=== PATIENT | male | born 1950 | race Caucasian/White ===

== ENCOUNTER → 2016-03-22 | Outpatient (CLI) | payer OTHER ==
[~2016-03-22] MED LIST: ALPR1TAB2 PO; NOR5T PO
[2016-03-22 10:59] LABS: INR 1.03 (0.9-1.15); Prothrombin Time 10.6 sec (9.37-12.3)
[2016-03-22 11:18] LABS: BUN/Creatinine Ratio 9.7; Bilirubin, Total 0.3 mg/dL (0.2-1.0); Calcium 9.3 mg/dL (8.5-10.1); Potassium 4.6 mmol/L (3.5-5.1); Total Protein 7.5 g/dL (6.4-8.2)
[2016-03-22 14:22] LABS: DEFINITIVE VIEW TRANSMISSION; Hematocrit 36.4 % (41.0-53.0); Hemoglobin 12.2 g/dL (13.5-17.5); Mean Corpuscular Hemoglobin 31.6 pg (28.0-32.0); Mean Corpuscular Hgb Conc. 33.7 g/dL (32.0-36.0); Mean Corpuscular Volume 93.9 fL (80.0-100.0); Mean Platelet Volume 9.1 fL (7.4-10.4); Platelet Count (auto) 286 10^3/uL (140-450); SUSPECT VIEW TRANSMISSION
[2016-03-22 14:23] LABS: White Blood Cell 57.2 10^3/uL (4.4-10.8)
[2016-03-22 14:24] LABS: Promyelocytes % 0; Reactive Lymphocytes 0
[2016-03-22 18:43] LABS: Metamyelocytes % 10; Myelocytes % 5
[2016-03-22 18:44] LABS: Burr Cells FEW; Hypersegmented Neutrophils Present; Platelet Estimate Adequate; Tear Drop Cells FEW
== END | disposition home or self-care (01) ==
LOC: LAB 09:56
DX: C92.10 Chronic myeloid leukemia, BCR/ABL-positive, not having achieved remission (principal)
CPT/HCPCS: 36415; 80053; 80061; 84443; 85007; 85027; 85610; 85652

== ENCOUNTER → 2016-04-04 | Outpatient (CLI) | payer OTHER ==
[2016-04-04 09:58] LABS: Urine Bilirubin Negative (Negative); Urine Blood TRACE /uL (Negative); Urine Color Yellow (Yellow); Urine Glucose Normal (Normal); Urine Ketone Negative (Negative); Urine Nitrite Negative (Negative); Urine RBC 2 /hpf (0 - 3); Urine Urobilinogen Normal (Negative); Urine pH 5.5 (5.0-8.0)
[2016-04-04 10:02] LABS: DEFINITIVE VIEW TRANSMISSION; Hematocrit 39.6 % (41.0-53.0); Hemoglobin 12.9 g/dL (13.5-17.5); Mean Corpuscular Hemoglobin 30.5 pg (28.0-32.0); Mean Corpuscular Hgb Conc. 32.6 g/dL (32.0-36.0); Mean Corpuscular Volume 93.4 fL (80.0-100.0); Mean Platelet Volume 9.5 fL (7.4-10.4); Platelet Count (auto) 305 10^3/uL (140-450); Red Cell Distribution Width 15.9 % (11.6-16.0); SUSPECT VIEW TRANSMISSION
[2016-04-04 10:09] LABS: INR 1.03 (0.9-1.15); Prothrombin Time 10.6 sec (9.37-12.3)
[2016-04-04 10:10] LABS: White Blood Cell 50.5 10^3/uL (4.4-10.8)
[2016-04-04 10:11] LABS: Promyelocytes % 0; Reactive Lymphocytes 0
[2016-04-04 10:53] LABS: Albumin 4.6 g/dL (3.4-5.0); BUN/Creatinine Ratio 16.3; Bilirubin, Total 0.3 mg/dL (0.2-1.0); Calcium 9.5 mg/dL (8.5-10.1); Potassium 4.2 mmol/L (3.5-5.1); Total Protein 7.9 g/dL (6.4-8.2)
[2016-04-04 11:06] LABS: Hypersegmented Neutrophils Present; Metamyelocytes % 7; Myelocytes % 2; Platelet Estimate Adequate
[2016-04-04 11:08] LABS: Anisocytosis Slight
== END | disposition home or self-care (01) ==
LOC: LAB 08:51
DX: C92.10 Chronic myeloid leukemia, BCR/ABL-positive, not having achieved remission (principal)
CPT/HCPCS: 36415; 80053; 80061; 81001; 83615; 84443; 85007; 85027; 85049; 85610; 85652

== ENCOUNTER → 2016-04-22 | Outpatient (CLI) | payer OTHER ==
[2016-04-22 08:08] LABS: Urine Bilirubin Negative (Negative); Urine Blood Negative /uL (Negative); Urine Color Yellow (Yellow); Urine Glucose Normal (Normal); Urine Ketone Negative (Negative); Urine Nitrite Negative (Negative); Urine RBC <1 /hpf (0 - 3); Urine Squamous Epithelial Cell FEW /hpf (<5); Urine Urobilinogen Normal (Negative)
[2016-04-22 08:14] LABS: Albumin 3.4 g/dL (3.4-5.0); BUN/Creatinine Ratio 18.8; Calcium 8.5 mg/dL (8.5-10.1); Potassium 3.7 mmol/L (3.5-5.1)
[2016-04-22 08:27] LABS: Bilirubin, Total 0.2 mg/dL (0.2-1.0); Total Protein 6.5 g/dL (6.4-8.2)
[2016-04-22 08:50] LABS: DEFINITIVE VIEW TRANSMISSION; Hematocrit 37.5 % (41.0-53.0); Hemoglobin 11.8 g/dL (13.5-17.5); Mean Corpuscular Hemoglobin 29.6 pg (28.0-32.0); Mean Corpuscular Hgb Conc. 31.6 g/dL (32.0-36.0); Mean Corpuscular Volume 93.9 fL (80.0-100.0); Mean Platelet Volume 9.4 fL (7.4-10.4); Platelet Count (auto) 233 10^3/uL (140-450); Red Cell Distribution Width 15.9 % (11.6-16.0); SUSPECT VIEW TRANSMISSION
[2016-04-22 11:16] LABS: Promyelocytes % 0; Reactive Lymphocytes 0; White Blood Cell 125.2 10^3/uL (4.4-10.8)
[2016-04-22 14:10] LABS: Metamyelocytes % 11; Myelocytes % 13
[2016-04-22 14:11] LABS: Platelet Estimate Adequate
== END | disposition home or self-care (01) ==
LOC: LAB 06:41
DX: C92.10 Chronic myeloid leukemia, BCR/ABL-positive, not having achieved remission (principal)
CPT/HCPCS: 36415; 80053; 80061; 81001; 83615; 84443; 85007; 85027

== ENCOUNTER → 2016-05-10 | Outpatient (CLI) | payer OTHER ==
[2016-05-10 09:28] LABS: DEFINITIVE VIEW TRANSMISSION; Hematocrit 36.9 % (41.0-53.0); Hemoglobin 12.6 g/dL (13.5-17.5); Mean Corpuscular Hemoglobin 31.3 pg (28.0-32.0); Mean Corpuscular Hgb Conc. 34.2 g/dL (32.0-36.0); Mean Corpuscular Volume 91.5 fL (80.0-100.0); Platelet Count (auto) 286 10^3/uL (140-450); Red Cell Distribution Width 16.9 % (11.6-16.0); SUSPECT VIEW TRANSMISSION
[2016-05-10 10:06] LABS: Albumin 4.3 g/dL (3.4-5.0); BUN/Creatinine Ratio 14.3; Bilirubin, Total 0.3 mg/dL (0.2-1.0); Calcium 9.5 mg/dL (8.5-10.1); Potassium 4.1 mmol/L (3.5-5.1); Total Protein 8.6 g/dL (6.4-8.2)
[2016-05-10 10:12] LABS: White Blood Cell 122.3 10^3/uL (4.4-10.8)
[2016-05-10 10:13] LABS: Promyelocytes % 0; Reactive Lymphocytes 0
[2016-05-10 15:14] LABS: Metamyelocytes % 9; Myelocytes % 9
[2016-05-10 15:15] LABS: Platelet Estimate Adequate
== END | disposition home or self-care (01) ==
LOC: LAB 08:20
PROVIDERS: ATTEND Internal Medicine
DX: D72.829 Elevated white blood cell count, unspecified (principal)
CPT/HCPCS: 36415; 80053; 83615; 85007; 85027

== ENCOUNTER → 2016-06-06 | Outpatient (CLI) | payer OTHER ==
[2016-06-06 09:37] LABS: DEFINITIVE VIEW TRANSMISSION; Hematocrit 34.7 % (41.0-53.0); Hemoglobin 11.4 g/dL (13.5-17.5); Mean Corpuscular Hemoglobin 30.5 pg (28.0-32.0); Mean Corpuscular Hgb Conc. 32.9 g/dL (32.0-36.0); Mean Corpuscular Volume 92.9 fL (80.0-100.0); Mean Platelet Volume 8.9 fL (7.4-10.4); Platelet Count (auto) 296 10^3/uL (140-450); Red Cell Distribution Width 17.6 % (11.6-16.0); SUSPECT VIEW TRANSMISSION
[2016-06-06 09:52] LABS: Promyelocytes % 0; Reactive Lymphocytes 0
[2016-06-06 10:31] LABS: Metamyelocytes % 11; Myelocytes % 7; Platelet Estimate Adequate
[2016-06-06 10:32] LABS: Anisocytosis Slight
== END | disposition home or self-care (01) ==
LOC: LAB 08:58
DX: C92.10 Chronic myeloid leukemia, BCR/ABL-positive, not having achieved remission (principal)
CPT/HCPCS: 36415; 83615; 85007; 85027; 85652

== ENCOUNTER → 2016-07-08 | Outpatient (CLI) | payer OTHER ==
[2016-07-08 08:59] LABS: DEFINITIVE VIEW TRANSMISSION; Hematocrit 29.8 % (41.0-53.0); Hemoglobin 10.1 g/dL (13.5-17.5); Mean Corpuscular Hemoglobin 31.5 pg (28.0-32.0); Mean Corpuscular Hgb Conc. 33.9 g/dL (32.0-36.0); Mean Platelet Volume 7.8 fL (7.4-10.4); Platelet Count (auto) 216 10^3/uL (140-450); Red Cell Distribution Width 17.7 % (11.6-16.0); SUSPECT VIEW TRANSMISSION
[2016-07-08 14:23] LABS: Promyelocytes % 0; Reactive Lymphocytes 0; White Blood Cell 115.9 10^3/uL (4.4-10.8)
[2016-07-08 14:25] LABS: Anisocytosis Slight; Metamyelocytes % 11; Myelocytes % 10; Platelet Estimate Adequate
== END | disposition home or self-care (01) ==
LOC: LAB 08:13
DX: C92.10 Chronic myeloid leukemia, BCR/ABL-positive, not having achieved remission (principal)
CPT/HCPCS: 36415; 83615; 85007; 85027

== ENCOUNTER → 2016-08-03 | Outpatient (CLI) | payer OTHER ==
[2016-08-03 07:00] LABS: DEFINITIVE VIEW TRANSMISSION; Hematocrit 33.7 % (41.0-53.0); Hemoglobin 11.6 g/dL (13.5-17.5); Mean Corpuscular Hemoglobin 32.4 pg (28.0-32.0); Mean Corpuscular Hgb Conc. 34.5 g/dL (32.0-36.0); Mean Platelet Volume 7.8 fL (7.4-10.4); Platelet Count (auto) 261 10^3/uL (140-450); Red Cell Distribution Width 18.1 % (11.6-16.0); SUSPECT VIEW TRANSMISSION
[2016-08-03 07:04] LABS: White Blood Cell 115.7 10^3/uL (4.4-10.8)
[2016-08-03 07:06] LABS: Promyelocytes % 0; Reactive Lymphocytes 0
[2016-08-03 07:08] LABS: Urine Bilirubin Negative (Negative); Urine Blood Negative /uL (Negative); Urine Color Yellow (Yellow); Urine Glucose Normal (Normal); Urine Ketone Negative (Negative); Urine Nitrite Negative (Negative); Urine RBC 1 /hpf (0 - 3); Urine Urobilinogen Normal (Negative)
[2016-08-03 08:18] LABS: BUN/Creatinine Ratio 17.7; Calcium 9.7 mg/dL (8.5-10.1); Potassium 4.4 mmol/L (3.5-5.1)
[2016-08-03 08:53] LABS: Metamyelocytes % 17; Myelocytes % 14
[2016-08-03 08:54] LABS: Platelet Estimate Adequate; Polychromasia Slight
[2016-08-03 08:56] LABS: Stomatocytes Few
== END | disposition home or self-care (01) ==
LOC: LAB 06:34
DX: C92.10 Chronic myeloid leukemia, BCR/ABL-positive, not having achieved remission (principal)
CPT/HCPCS: 36415; 80048; 81001; 83615; 85007; 85027

== ENCOUNTER → 2016-08-30 | Outpatient (CLI) | payer OTHER ==
[~2016-08-30] MED LIST changes: +HYDR-4663 PO; -NOR5T PO
[2016-08-30 08:37] LABS: DEFINITIVE VIEW TRANSMISSION; Hematocrit 28.3 % (41.0-53.0); Hemoglobin 9.8 g/dL (13.5-17.5); Mean Corpuscular Hemoglobin 32.2 pg (28.0-32.0); Mean Corpuscular Hgb Conc. 34.7 g/dL (32.0-36.0); Mean Corpuscular Volume 92.8 fL (80.0-100.0); Mean Platelet Volume 8.3 fL (7.4-10.4); Platelet Count (auto) 184 10^3/uL (140-450); Red Cell Distribution Width 16.8 % (11.6-16.0); SUSPECT VIEW TRANSMISSION
[2016-08-30 08:44] LABS: Urine Bilirubin Negative (Negative); Urine Blood TRACE /uL (Negative); Urine Color Yellow (Yellow); Urine Glucose Normal (Normal); Urine Ketone Negative (Negative); Urine Nitrite Negative (Negative); Urine RBC 1 /hpf (0 - 3); Urine Squamous Epithelial Cell FEW /hpf (<5); Urine Urobilinogen Normal (Negative); Urine pH 5.5 (5.0-8.0)
[2016-08-30 09:27] LABS: Albumin 3.8 g/dL (3.4-5.0); BUN/Creatinine Ratio 18.1; Bilirubin, Total 0.3 mg/dL (0.2-1.0); Calcium 8.7 mg/dL (8.5-10.1); Potassium 4.1 mmol/L (3.5-5.1); Total Protein 6.9 g/dL (6.4-8.2)
[2016-08-30 13:16] LABS: White Blood Cell 122.7 10^3/uL (4.4-10.8)
[2016-08-30 13:17] LABS: Promyelocytes % 0; Reactive Lymphocytes 0
[2016-08-30 14:26] LABS: Metamyelocytes % 13; Myelocytes % 10
[2016-08-30 14:28] LABS: Platelet Estimate Adequate
[2016-08-30 14:30] LABS: Tear Drop Cells FEW
[2016-08-30 14:33] LABS: Ovalocytes FEW
== END | disposition home or self-care (01) ==
LOC: LAB 07:04
DX: E78.5 Hyperlipidemia, unspecified (principal); R53.1 Weakness; C92.10 Chronic myeloid leukemia, BCR/ABL-positive, not having achieved remission
CPT/HCPCS: 36415; 80053; 80061; 81001; 83615; 84403; 84443; 85007; 85027

== ENCOUNTER → 2016-12-15 | Outpatient (CLI) | payer OTHER ==
[2016-12-15 10:29] LABS: Hematocrit 30.5 % (41.0-53.0); Hemoglobin 9.8 g/dL (13.5-17.5); Mean Corpuscular Hemoglobin 30.1 pg (28.0-32.0); Mean Corpuscular Hgb Conc. 32.1 g/dL (32.0-36.0); Mean Corpuscular Volume 93.8 fL (80.0-100.0); Mean Platelet Volume 7.7 fL (6.9-10.8); Platelet Count (auto) 124 10^3/uL (140-450); Red Cell Distribution Width 17.2 % (11.8-14.3)
[2016-12-15 11:45] LABS: White Blood Cell 171.5 10^3/uL (4.4-10.8)
[2016-12-15 11:46] LABS: Promyelocytes % 0; Reactive Lymphocytes 0
[2016-12-15 14:32] LABS: Metamyelocytes % 10; Myelocytes % 15
[2016-12-15 14:34] LABS: Platelet Estimate Decreased; Tear Drop Cells FEW
== END | disposition home or self-care (01) ==
LOC: LAB 10:03
PROVIDERS: ATTEND Family Medicine
DX: C92.10 Chronic myeloid leukemia, BCR/ABL-positive, not having achieved remission (principal); I10 Essential (primary) hypertension; E11.9 Type 2 diabetes mellitus without complications
CPT/HCPCS: 36415; 83615; 84153; 85007; 85027

== ENCOUNTER → 2017-01-11 | Outpatient (CLI) | payer OTHER ==
[~2017-01-11] MED LIST changes: -HYDR-4663 PO; +HYDR-4683 PO
[2017-01-11 13:39] LABS: Hemoglobin 9.5 g/dL (13.5-17.5); Mean Corpuscular Hemoglobin 30.2 pg (28.0-32.0)
[2017-01-11 13:43] LABS: Hematocrit 29.3 % (41.0-53.0); Mean Corpuscular Hgb Conc. 32.4 g/dL (32.0-36.0); Mean Corpuscular Volume 93.2 fL (80.0-100.0); Mean Platelet Volume 8.3 fL (6.9-10.8); Platelet Count (auto) 175 10^3/uL (140-450); Red Cell Distribution Width 17.6 % (11.8-14.3)
[2017-01-11 13:51] LABS: White Blood Cell 102.4 10^3/uL (4.4-10.8)
[2017-01-11 13:53] LABS: Promyelocytes % 0; Reactive Lymphocytes 0
[2017-01-11 14:01] LABS: Albumin 3.8 g/dL (3.4-5.0); BUN/Creatinine Ratio 15.3; Bilirubin, Total 0.3 mg/dL (0.2-1.0); Calcium 8.5 mg/dL (8.5-10.1); Potassium 4.3 mmol/L (3.5-5.1); Total Protein 7.6 g/dL (6.4-8.2)
[2017-01-11 15:21] LABS: Metamyelocytes % 15; Myelocytes % 8
[2017-01-11 15:23] LABS: Platelet Estimate Adequate
[2017-01-11 15:26] LABS: Polychromasia Slight; Stomatocytes Few
[2017-01-11 15:27] LABS: Wright Stain Ready for Review
== END | disposition home or self-care (01) ==
LOC: LAB 12:56
DX: Z51.11 Encounter for antineoplastic chemotherapy (principal); C92.10 Chronic myeloid leukemia, BCR/ABL-positive, not having achieved remission
CPT/HCPCS: 36415; 80053; 81206; 81207; 83605; 84443; 85007; 85027

== ENCOUNTER → 2017-03-03 | Outpatient (CLI) | payer OTHER ==
[2017-03-03 09:25] LABS: Platelet Count (auto) 171 10^3/uL (140-450)
[2017-03-03 09:29] LABS: Hematocrit 32.9 % (41.0-53.0); Hemoglobin 10.5 g/dL (13.5-17.5); Mean Corpuscular Hemoglobin 29.8 pg (28.0-32.0); Mean Corpuscular Hgb Conc. 31.9 g/dL (32.0-36.0); Mean Corpuscular Volume 93.2 fL (80.0-100.0); Mean Platelet Volume 8.3 fL (6.9-10.8); Red Cell Distribution Width 17.4 % (11.8-14.3)
[2017-03-03 09:43] LABS: White Blood Cell 103.9 10^3/uL (4.4-10.8)
[2017-03-03 09:45] LABS: Promyelocytes % 0; Reactive Lymphocytes 0; Urine Bilirubin Negative (Negative); Urine Blood Negative /uL (Negative); Urine Color Yellow (Yellow); Urine Glucose Normal (Normal); Urine Ketone Negative (Negative); Urine Nitrite Negative (Negative); Urine RBC <1 /hpf (0 - 3); Urine Urobilinogen Normal (Negative); Urine pH 6.5 (5.0-8.0)
[2017-03-03 09:48] LABS: Albumin 4.2 g/dL (3.4-5.0); Bilirubin, Total 0.3 mg/dL (0.2-1.0); Calcium 9.1 mg/dL (8.5-10.1); Magnesium 2.4 mg/dL (1.6-2.6); Potassium 3.9 mmol/L (3.5-5.1); Total Protein 7.9 g/dL (6.4-8.2)
[2017-03-03 09:52] LABS: Progesterone 0.1 ng/mL (0.15-28)
[2017-03-03 10:39] LABS: Metamyelocytes % 8; Myelocytes % 7
[2017-03-03 10:40] LABS: Anisocytosis Slight; Platelet Estimate Adequate; Polychromasia Slight
== END | disposition home or self-care (01) ==
LOC: LAB 08:26
PROVIDERS: ATTEND Nurse Practitioner
DX: C92.10 Chronic myeloid leukemia, BCR/ABL-positive, not having achieved remission (principal); E78.5 Hyperlipidemia, unspecified; M21.371 Foot drop, right foot; I10 Essential (primary) hypertension; R51 Headache; Z80.42 Family history of malignant neoplasm of prostate
CPT/HCPCS: 36415; 80053; 80061; 81001; 82150; 82378; 82533; 82670; 82672; 83001; 83002; 83615; 83735; 84144; 84146; 84153; 84403; 84443; 85007; 85027; 86301; 86304

== ENCOUNTER → 2017-03-03 | Outpatient (CLI) | payer OTHER | END | disposition home or self-care (01) | LOC: LAB 15:07 | PROVIDERS: ATTEND Family Medicine | DX: C92.10 Chronic myeloid leukemia, BCR/ABL-positive, not having achieved remission (principal); M21.371 Foot drop, right foot; E78.5 Hyperlipidemia, unspecified; Z80.42 Family history of malignant neoplasm of prostate | CPT/HCPCS: 82533 ==

== ENCOUNTER → 2017-03-17 | Outpatient (CLI) | payer OTHER ==
[~2017-03-17] MED LIST changes: +DIA5T PO
[2017-03-17 09:34] LABS: Hemoglobin 9.5 g/dL (13.5-17.5); Mean Corpuscular Volume 93.7 fL (80.0-100.0); Red Cell Distribution Width 17.5 % (11.8-14.3)
[2017-03-17 09:39] LABS: Hematocrit 28.7 % (41.0-53.0); Mean Corpuscular Hemoglobin 30.9 pg (28.0-32.0); Platelet Count (auto) 185 10^3/uL (140-450); Red Blood Cells 3.07 10^6/uL (4.5-5.90)
[2017-03-17 11:21] LABS: Basophils % (manual) 0 (0.0-2.0); Blast Cells 0; Promyelocytes % 0; Reactive Lymphocytes 0
[2017-03-17 11:22] LABS: Band Neutrophils % (manual) 25; Eosinophils % (manual) 2 (0-7); Lymphocytes % (manual) 1 (10.0-50.0); Metamyelocytes % 16; Monocytes % (manual) 3 (0-12); Myelocytes % 7
[2017-03-17 11:55] LABS: Albumin 3.6 g/dL (3.4-5.0); BUN/Creatinine Ratio 15.9; Bilirubin, Total 0.6 mg/dL (0.2-1.0); Calcium 8.3 mg/dL (8.5-10.1); Potassium 4.1 mmol/L (3.5-5.1); Uric Acid 6.2 mg/dL (3.5-7.2)
== END | disposition home or self-care (01) ==
LOC: LAB 09:01
PROVIDERS: ATTEND Internal Medicine
DX: C92.10 Chronic myeloid leukemia, BCR/ABL-positive, not having achieved remission (principal)
CPT/HCPCS: 36415; 80053; 83615; 84550; 85007; 85027

== ENCOUNTER → 2017-04-20 | Outpatient (CLI) | payer OTHER ==
[2017-04-20 16:23] LABS: Hematocrit 30.8 % (41.0-53.0); Hemoglobin 10.1 g/dL (13.5-17.5); Mean Corpuscular Hemoglobin 31.1 pg (28.0-32.0); Mean Corpuscular Volume 94.4 fL (80.0-100.0); Platelet Count (auto) 259 10^3/uL (140-450); Red Blood Cells 3.26 10^6/uL (4.5-5.90); White Blood Cell 12.7 10^3/uL (4.4-10.8)
[2017-04-20 16:32] LABS: Basophils % (manual) 0 (0.0-2.0); Blast Cells 0; Myelocytes % 0; Promyelocytes % 0; Reactive Lymphocytes 0
[2017-04-20 17:10] LABS: Albumin 3.6 g/dL (3.4-5.0); BUN/Creatinine Ratio 20.4; Bilirubin, Total 0.2 mg/dL (0.2-1.0); Calcium 8.3 mg/dL (8.5-10.1); Potassium 4.1 mmol/L (3.5-5.1); Total Protein 7.2 g/dL (6.4-8.2)
[2017-04-20 19:49] LABS: Band Neutrophils % (manual) 3; Lymphocytes % (manual) 22 (10.0-50.0); Metamyelocytes % 1; Monocytes % (manual) 7 (0-12)
[2017-04-20 19:50] LABS: Eosinophils % (manual) 3 (0-7)
== END | disposition home or self-care (01) ==
LOC: LAB 15:52
PROVIDERS: ATTEND Internal Medicine
DX: C92.10 Chronic myeloid leukemia, BCR/ABL-positive, not having achieved remission (principal)
CPT/HCPCS: 36415; 80053; 81206; 81207; 83615; 85007; 85027

== ENCOUNTER → 2017-06-16 | Outpatient (CLI) | payer OTHER ==
[2017-06-16 13:43] LABS: Basophils # (auto) 0 uL; Basophils % (auto) 0.6 % (0.0-2.0); Eosinophils # (auto) 0.1 uL; Eosinophils % (auto) 1.1 % (0.0-7.0); Hematocrit 37.6 % (41.0-53.0); Hemoglobin 12.7 g/dL (13.5-17.5); Lymphocytes # (auto) 1.1 uL; Lymphocytes % (auto) 21.7 % (10.0-50.0); Mean Corpuscular Hemoglobin 31.3 pg (28.0-32.0); Mean Corpuscular Hgb Conc. 33.7 g/dL (32.0-36.0); Mean Corpuscular Volume 92.9 fL (80.0-100.0); Monocytes # (auto) 0.4 uL; Monocytes % (auto) 7.5 % (0.0-12.0); Neutrophils # (auto) 3.6 uL; Neutrophils % (auto) 69.1 % (37.0-80.0); Platelet Count (auto) 238 10^3/uL (140-450); Red Blood Cells 4.05 10^6/uL (4.5-5.90); Red Cell Distribution Width 13.9 % (11.8-14.3); White Blood Cell 5.2 10^3/uL (4.4-10.8)
[2017-06-16 14:14] LABS: BUN/Creatinine Ratio 19.6; Bilirubin, Total 0.3 mg/dL (0.2-1.0); Calcium 8.5 mg/dL (8.5-10.1); Potassium 3.9 mmol/L (3.5-5.1); Total Protein 7.7 g/dL (6.4-8.2)
== END | disposition home or self-care (01) ==
LOC: LAB 13:26
PROVIDERS: ATTEND Internal Medicine
DX: C92.10 Chronic myeloid leukemia, BCR/ABL-positive, not having achieved remission (principal)
CPT/HCPCS: 36415; 80053; 83615; 85025

== ENCOUNTER → 2017-06-21 | Day surgery (SDC) | payer OTHER ==
[2017-06-19 12:09] LABS: Basophils # (auto) 0.2 uL; Basophils % (auto) 3.2 % (0.0-2.0); Eosinophils # (auto) 0 uL; Eosinophils % (auto) 0.7 % (0.0-7.0); Hematocrit 39.6 % (41.0-53.0); Lymphocytes # (auto) 1.4 uL; Lymphocytes % (auto) 24.2 % (10.0-50.0); Mean Corpuscular Hemoglobin 30.9 pg (28.0-32.0); Mean Corpuscular Hgb Conc. 32.8 g/dL (32.0-36.0); Mean Corpuscular Volume 94.2 fL (80.0-100.0); Monocytes # (auto) 0.3 uL; Neutrophils # (auto) 3.8 uL; Neutrophils % (auto) 65.9 % (37.0-80.0); Platelet Count (auto) 238 10^3/uL (140-450); White Blood Cell 5.8 10^3/uL (4.4-10.8)
[2017-06-19 12:16] LABS: Urine Bacteria NONE SEEN /hpf (None Seen); Urine Blood Negative /uL (Negative); Urine Specific Gravity 1.011 (1.001-1.035); Urine WBC <1 /hpf (0 - 3)
[2017-06-19 12:23] LABS: INR 0.95 (0.9-1.15); Partial Thromboplastin Time 28.2 sec (22.64-33.71); Prothrombin Time 10.3 sec (9.37-12.3)
[2017-06-19 12:31] LABS: Albumin 3.9 g/dL (3.4-5.0); BUN/Creatinine Ratio 16.8; Bilirubin, Total 0.2 mg/dL (0.2-1.0); Calcium 8.6 mg/dL (8.5-10.1); Potassium 4.2 mmol/L (3.5-5.1); Total Protein 7.4 g/dL (6.4-8.2)
[~2017-06-21] VITALS: Ht 172.7 cm; Wt 74.8 kg
[~2017-06-21] MED LIST changes: +GLYCOPYRROLATE 0.2 MG/ML 1ML VIAL ONE; +KETOROLAC TROMETH 30 MG/ML 1ML VIAL ONE; +LIDOCAINE 1% (LOCAL ANESTH.) PF 5ml SDV ONE; +MEPERIDINE HCL (25 MG/ML) 1ML VIAL IV ONE; +MEPERIDINE HCL (25 MG/ML) 1ML VIAL ONE; +MIDAZOLAM HCL 1MG/1ML-2 ML VIAL ONE; +NALOXONE HCL 0.4 MG/ML VIAL IV PRN; +NEOSTIGMINE 1 MG/ML INJ (10mg/10ML VIAL) ONE; +ONDANSETRON HCL 4 MG/2 ML VIAL IV ONE; +POVIDONE IODINE 10 % TOPICAL OINT 30GM TOP ONE; +PROPOFOL 10 MG/ML 20 ML IV ONE; +ROCURONIUM 10MG/ML 10ML VIAL IV ONE; +SUCCINYLCHOLINE CHLORIDE 20 MG/ML 10ML VIAL IV ONE; +ceFAZolin 1GM VL ONE; +ceFAZolin 1GM/50ML 50 ML IV ONE; +fentaNYL CITRATE 100 MCG/2 ML VL ONE
[2017-06-21] MEDS: MORPHINE SULFATE 4 MG/ML SYR/VIAL IV PRN ×3 (13:03→13:36)
[2017-06-21 15:47] VITALS: BP 132/64
== END | disposition home or self-care (01) ==
LOC: SUR 07:03
PROVIDERS: ATTEND Surgery
DX: K43.9 Ventral hernia without obstruction or gangrene (principal); E66.9 Obesity, unspecified; F41.9 Anxiety disorder, unspecified; Z87.891 Personal history of nicotine dependence
CPT/HCPCS: 36415; 49590; 80053; 81001; 85025; 85610; 85730; J0330; J0690; J1885; J2175; J2250; J2270; J2405; J2704; J3010; 88302

== ENCOUNTER → 2017-07-13 | Outpatient (CLI) | payer OTHER ==
[~2017-07-13] MED LIST changes: -GLYCOPYRROLATE 0.2 MG/ML 1ML VIAL ONE; -KETOROLAC TROMETH 30 MG/ML 1ML VIAL ONE; -LIDOCAINE 1% (LOCAL ANESTH.) PF 5ml SDV ONE; -MEPERIDINE HCL (25 MG/ML) 1ML VIAL IV ONE; -MEPERIDINE HCL (25 MG/ML) 1ML VIAL ONE; -MIDAZOLAM HCL 1MG/1ML-2 ML VIAL ONE; -NALOXONE HCL 0.4 MG/ML VIAL IV PRN; -NEOSTIGMINE 1 MG/ML INJ (10mg/10ML VIAL) ONE; -ONDANSETRON HCL 4 MG/2 ML VIAL IV ONE; -POVIDONE IODINE 10 % TOPICAL OINT 30GM TOP ONE; -PROPOFOL 10 MG/ML 20 ML IV ONE; -ROCURONIUM 10MG/ML 10ML VIAL IV ONE; -SUCCINYLCHOLINE CHLORIDE 20 MG/ML 10ML VIAL IV ONE; -ceFAZolin 1GM VL ONE; -ceFAZolin 1GM/50ML 50 ML IV ONE; -fentaNYL CITRATE 100 MCG/2 ML VL ONE
[2017-07-13 11:11] LABS: Basophils # (auto) 0.1 uL; Basophils % (auto) 0.6 % (0.0-2.0); Eosinophils # (auto) 0 uL; Eosinophils % (auto) 0.3 % (0.0-7.0); Hematocrit 41.6 % (41.0-53.0); Hemoglobin 14.1 g/dL (13.5-17.5); Lymphocytes # (auto) 1.5 uL; Lymphocytes % (auto) 14.2 % (10.0-50.0); Mean Corpuscular Hgb Conc. 33.9 g/dL (32.0-36.0); Mean Corpuscular Volume 91.4 fL (80.0-100.0); Monocytes # (auto) 0.5 uL; Monocytes % (auto) 4.8 % (0.0-12.0); Neutrophils # (auto) 8.4 uL; Neutrophils % (auto) 80.1 % (37.0-80.0); Platelet Count (auto) 287 10^3/uL (140-450); Red Blood Cells 4.55 10^6/uL (4.5-5.90); Red Cell Distribution Width 13.6 % (11.8-14.3); White Blood Cell 10.5 10^3/uL (4.4-10.8)
[2017-07-13 11:27] LABS: Potassium 3.8 mmol/L (3.5-5.1)
[2017-07-13 11:28] LABS: Albumin 3.9 g/dL (3.4-5.0); Bilirubin, Total 0.2 mg/dL (0.2-1.0); Calcium 8.9 mg/dL (8.5-10.1); Total Protein 7.6 g/dL (6.4-8.2)
== END | disposition home or self-care (01) ==
LOC: LAB 10:36
PROVIDERS: ATTEND Internal Medicine
DX: C92.10 Chronic myeloid leukemia, BCR/ABL-positive, not having achieved remission (principal); E78.5 Hyperlipidemia, unspecified; I10 Essential (primary) hypertension; E11.9 Type 2 diabetes mellitus without complications; Z87.891 Personal history of nicotine dependence
CPT/HCPCS: 36415; 80053; 83615; 85025

== ENCOUNTER → 2017-08-25 | Outpatient (CLI) | payer OTHER ==
[2017-08-25 10:07] LABS: Mean Corpuscular Hemoglobin 29.8 pg (28.0-32.0)
[2017-08-25 10:10] LABS: Hemoglobin 13.1 g/dL (13.5-17.5); Mean Corpuscular Hgb Conc. 32.7 g/dL (32.0-36.0); Mean Corpuscular Volume 91.1 fL (80.0-100.0); Platelet Count (auto) 247 10^3/uL (140-450); Red Blood Cells 4.39 10^6/uL (4.5-5.90); Red Cell Distribution Width 14.2 % (11.8-14.3)
[2017-08-25 10:47] LABS: White Blood Cell 30.3 10^3/uL (4.4-10.8)
[2017-08-25 10:48] LABS: Basophils % (manual) 0 (0.0-2.0); Eosinophils % (manual) 0 (0-7)
[2017-08-25 10:49] LABS: Blast Cells 0; Promyelocytes % 0; Reactive Lymphocytes 0
[2017-08-25 11:19] LABS: Band Neutrophils % (manual) 9; Lymphocytes % (manual) 5 (10.0-50.0); Metamyelocytes % 1; Monocytes % (manual) 1 (0-12); Myelocytes % 5
== END | disposition home or self-care (01) ==
LOC: LAB 09:32
PROVIDERS: ATTEND Internal Medicine
DX: D72.829 Elevated white blood cell count, unspecified (principal); I10 Essential (primary) hypertension; E78.5 Hyperlipidemia, unspecified; E11.9 Type 2 diabetes mellitus without complications
CPT/HCPCS: 36415; 85007; 85027

== ENCOUNTER → 2017-11-24 | Outpatient (CLI) | payer OTHER ==
[2017-11-24 11:24] LABS: Alcohol, Urine < 3.0 mg/dL (0-5); Amphetamine Screen, Urine NEGATIVE (NEGATIVE); Barbiturate Scree,Urine NEGATIVE (NEGATIVE); Benzodiazephine Screen, Urine POSITIVE (NEGATIVE); Cannabinoid Screen, Urine POSITIVE (NEGATIVE); Cocaine Screen, Urine NEGATIVE (NEGATIVE); Opiate Scree,Urine NEGATIVE (NEGATIVE); Phencyclidine Screen, Urine NEGATIVE (NEGATIVE); Urine Bacteria NONE SEEN /hpf (None Seen); Urine Blood Negative /uL (Negative); Urine Specific Gravity 1.005 (1.001-1.035); Urine WBC 1 /hpf (0 - 3)
== END | disposition home or self-care (01) ==
LOC: LAB 10:27
PROVIDERS: ATTEND Nurse Practitioner
DX: Z02.83 Encounter for blood-alcohol and blood-drug test (principal); I10 Essential (primary) hypertension
CPT/HCPCS: 80307; 81001

== ENCOUNTER → 2017-12-08 | Outpatient (CLI) | payer OTHER, MEDICARE ==
[~2017-12-08] MED LIST changes: +DASA20TA PO
[2017-12-08 11:56] LABS: Hematocrit 41.4 % (41.0-53.0); Hemoglobin 13.7 g/dL (13.5-17.5); Mean Corpuscular Hemoglobin 30.9 pg (28.0-32.0); Mean Corpuscular Volume 93.5 fL (80.0-100.0); Platelet Count (auto) 282 10^3/uL (140-450); Red Blood Cells 4.43 10^6/uL (4.5-5.90); Red Cell Distribution Width 14.3 % (11.8-14.3)
[2017-12-08 12:12] LABS: Urine Bacteria NONE SEEN /hpf (None Seen); Urine Blood TRACE /uL (Negative); Urine Specific Gravity 1.005 (1.001-1.035); Urine WBC 1 /hpf (0 - 3)
[2017-12-08 12:15] LABS: Albumin 3.9 g/dL (3.4-5.0); BUN/Creatinine Ratio 14.8; Bilirubin, Total 0.2 mg/dL (0.2-1.0); Calcium 8.9 mg/dL (8.5-10.1); Potassium 4.1 mmol/L (3.5-5.1); Total Protein 7.7 g/dL (6.4-8.2)
[2017-12-08 13:01] LABS: White Blood Cell 52.9 10^3/uL (4.4-10.8)
[2017-12-08 13:14] LABS: Basophils % (manual) 0 (0.0-2.0); Blast Cells 0; Eosinophils % (manual) 0 (0-7); Monocytes % (manual) 0 (0-12); Reactive Lymphocytes 0
[2017-12-08 13:15] LABS: Band Neutrophils % (manual) 8; Lymphocytes % (manual) 2 (10.0-50.0); Metamyelocytes % 4; Myelocytes % 13; Promyelocytes % 4
== END | disposition home or self-care (01) ==
LOC: LAB 11:29
PROVIDERS: ATTEND Internal Medicine
DX: C92.10 Chronic myeloid leukemia, BCR/ABL-positive, not having achieved remission (principal); F41.9 Anxiety disorder, unspecified; Z87.891 Personal history of nicotine dependence
CPT/HCPCS: 36415; 80053; 81001; 83615; 85007; 85027

== ENCOUNTER 2017-12-18 08:50 | Inpatient (IN) | payer MEDICARE, OTHER ==
[~2017-12-18] VITALS: Ht 172.7 cm; Wt 75.7 kg
[~2017-12-18 08:50] MED LIST changes: -DASA20TA PO
[2017-12-18] MEDS ORDERED: METOPROLOL TARTRATE 50 MG TAB PO ONE (09:15)
[2017-12-18 09:29] LABS: Hemoglobin 14.9 g/dL (13.5-17.5); Red Cell Distribution Width 14.3 % (11.8-14.3)
[2017-12-18 09:32] LABS: Hematocrit 45.3 % (41.0-53.0); Mean Corpuscular Hemoglobin 30.4 pg (28.0-32.0); Mean Corpuscular Hgb Conc. 32.8 g/dL (32.0-36.0); Mean Corpuscular Volume 92.6 fL (80.0-100.0); Platelet Count (auto) 160 10^3/uL (140-450); Red Blood Cells 4.89 10^6/uL (4.5-5.90)
[2017-12-18 09:47] LABS: INR 0.97 (0.9-1.15); Partial Thromboplastin Time 26.4 sec (23.78-33.04); Prothrombin Time 10.4 sec (9.27-12.13)
[2017-12-18 10:00] LABS: Alanine Aminotransferase 17 U/L (16-61); Albumin 4.2 g/dL (3.4-5.0); Alkaline Phosphatase 64 U/L (45-117); Anion Gap 7 (5-15); Aspartate Aminotransferase 29 U/L (15-37); BUN/Creatinine Ratio 22.1; Bilirubin, Total 0.4 mg/dL (0.2-1.0); Blood Urea Nitrogen 27 mg/dL (7-18); Calcium 9.4 mg/dL (8.5-10.1); Carbon Dioxide 27 mmol/L (21-32); Chloride 102 mmol/L (98-107); GFR African American 76 mL/min; GFR Non-African American 63 mL/min; Glucose 123 mg/dL (74-106); Magnesium 2.3 mg/dL (1.6-2.6); Potassium 3.5 mmol/L (3.5-5.1); Sodium 136 mmol/L (136-145); Total Protein 8.2 g/dL (6.4-8.2)
[2017-12-18 10:57] LABS: Basophils % (manual) 0 (0.0-2.0); Blast Cells 0; Eosinophils % (manual) 0 (0-7)
[2017-12-18 11:01] LABS: Band Neutrophils % (manual) 14; Lymphocytes % (manual) 9 (10.0-50.0); Metamyelocytes % 8; Monocytes % (manual) 3 (0-12); Myelocytes % 2; Promyelocytes % 2; Reactive Lymphocytes 1
[2017-12-18] MEDS ORDERED: LORazepam 2MG/ML-1ML VIAL IV ONE (11:45)
[2017-12-18] MEDS ORDERED: LORazepam 2MG/ML-1ML VIAL ONE (11:48)
[2017-12-18] MEDS ORDERED: HYDROcodone-ACET 5/325MG TAB PO PRN (13:30)
[2017-12-18] MEDS ORDERED: cefTRIAXone 1GM/10ml IVPUSH 10 ML IV ONE (13:30)
[2017-12-18] MEDS ORDERED: SOTALOL HCL 80 MG TAB PO ONE (13:30)
[2017-12-18] MEDS ORDERED: ONDANSETRON HCL 4 MG/2 ML VIAL IV PRN (13:30)
[2017-12-18] MEDS ORDERED: DOCUSATE SOD 100 MG CAP PO PRN (13:30)
[2017-12-18] MEDS ORDERED: ACETAMINOPHEN 325 MG TAB PO PRN (13:30)
[2017-12-18] MEDS ORDERED: MORPHINE SULFATE 4 MG/ML SYR/VIAL IV PRN ×2 (13:30)
[2017-12-18] MEDS ORDERED: NITROGLYCERIN 0.4 MG SL TAB SL PRN (13:30)
[2017-12-18] MEDS ORDERED: DIAZEPAM 2 MG TAB PO PRN (13:30)
[2017-12-18 13:51] VITALS: BP 125/84
[2017-12-18] MEDS: SODIUM CHLOR 0.9% PF (SALINE LOCK) 10ML VIAL/SYR IV SCH ×2 (14:08→22:11)
[2017-12-18 16:30] VITALS: BP 139/87
[2017-12-18] MEDS: ALBUTEROL SULF 2.5 MG/0.5ML(0.5%) NEB SOLN NEB SCH (18:45)
[2017-12-18] MEDS: IPRATROPIUM BROM 0.5 MG/2.5ML INH SOL NEB SCH (18:45)
[2017-12-18 20:00] VITALS: BP 132/73
[2017-12-18 22:00] VITALS: BP 132/73
[2017-12-18] MEDS: HYDROXYUREA 500 MG CAP PO SCH (22:01)
[2017-12-18] MEDS: IBUPROFEN 400 MG TAB PO PRN (22:03)
[2017-12-18] MEDS: TEMAZEPAM 15 MG CAP PO PRN (22:03)
[2017-12-18] MEDS: SOTALOL HCL 80 MG TAB PO SCH (22:03)
[2017-12-18] MEDS: FAMOTIDINE 20 MG TAB PO SCH (22:04)
[2017-12-18 23:40] LABS: Urine Bacteria NONE SEEN /hpf (None Seen); Urine Blood 2+ /uL (Negative); Urine Mucus FEW (None Seen); Urine Specific Gravity 1.028 (1.001-1.035); Urine WBC 2 /hpf (0 - 3)
[2017-12-19 05:36] VITALS: BP 150/78
[2017-12-19] MEDS: ALBUTEROL SULF 2.5 MG/0.5ML(0.5%) NEB SOLN NEB SCH ×4 (06:30→18:34)
[2017-12-19] MEDS: IPRATROPIUM BROM 0.5 MG/2.5ML INH SOL NEB SCH ×4 (06:30→18:34)
[2017-12-19] MEDS: SODIUM CHLOR 0.9% PF (SALINE LOCK) 10ML VIAL/SYR IV SCH ×3 (06:33→22:08)
[2017-12-19 07:11] LABS: Hemoglobin 13.7 g/dL (13.5-17.5); Platelet Count (auto) 145 10^3/uL (140-450); Red Cell Distribution Width 14.3 % (11.8-14.3)
[2017-12-19 07:15] LABS: Hematocrit 40.8 % (41.0-53.0); Mean Corpuscular Hemoglobin 30.8 pg (28.0-32.0); Mean Corpuscular Hgb Conc. 33.5 g/dL (32.0-36.0); Mean Corpuscular Volume 91.9 fL (80.0-100.0); Red Blood Cells 4.44 10^6/uL (4.5-5.90)
[2017-12-19 07:28] LABS: Albumin 3.6 g/dL (3.4-5.0); BUN/Creatinine Ratio 30.3; Bilirubin, Total 0.3 mg/dL (0.2-1.0); Calcium 8.7 mg/dL (8.5-10.1); Potassium 3.8 mmol/L (3.5-5.1); Total Protein 7.1 g/dL (6.4-8.2)
[2017-12-19 07:30] LABS: White Blood Cell 48.4 10^3/uL (4.4-10.8)
[2017-12-19 07:31] LABS: Basophils % (manual) 0 (0.0-2.0); Blast Cells 0; Eosinophils % (manual) 0 (0-7); Promyelocytes % 0; Reactive Lymphocytes 0
[2017-12-19 08:34] LABS: Band Neutrophils % (manual) 11; Lymphocytes % (manual) 12 (10.0-50.0); Metamyelocytes % 6; Monocytes % (manual) 4 (0-12); Myelocytes % 2
[2017-12-19 08:49] VITALS: BP 133/80
[2017-12-19] MEDS: HYDROXYUREA 500 MG CAP PO SCH ×2 (09:26→22:11)
[2017-12-19] MEDS: cefTRIAXone 1GM/10ml IVPUSH 10 ML IV SCH (09:26)
[2017-12-19] MEDS: FAMOTIDINE 20 MG TAB PO SCH ×2 (09:27→22:11)
[2017-12-19] MEDS: MULTIPLE VITAMIN TAB PO SCH (09:27)
[2017-12-19] MEDS: SOTALOL HCL 80 MG TAB PO SCH ×2 (09:27→22:10)
[2017-12-19 13:00] VITALS: BP 131/73
[2017-12-19] MEDS: AZITHROMYCIN 250 MG TAB PO SCH (16:33)
[2017-12-19 17:00] VITALS: BP 142/76
[2017-12-19 20:00] VITALS: BP 125/75
[2017-12-19 22:00] VITALS: BP 125/75
[2017-12-19] MEDS: IBUPROFEN 400 MG TAB PO PRN (22:11)
[2017-12-19] MEDS: TEMAZEPAM 15 MG CAP PO PRN (22:11)
[2017-12-20] MEDS: IPRATROPIUM BROM 0.5 MG/2.5ML INH SOL NEB SCH ×4 (00:40→18:28)
[2017-12-20] MEDS: ALBUTEROL SULF 2.5 MG/0.5ML(0.5%) NEB SOLN NEB SCH ×4 (00:40→18:28)
[2017-12-20 05:00] VITALS: BP 133/73
[2017-12-20] MEDS: SODIUM CHLOR 0.9% PF (SALINE LOCK) 10ML VIAL/SYR IV SCH ×2 (06:43→14:00)
[2017-12-20 09:00] VITALS: BP 132/71
[2017-12-20] MEDS: cefTRIAXone 1GM/10ml IVPUSH 10 ML IV SCH (09:53)
[2017-12-20] MEDS: FAMOTIDINE 20 MG TAB PO SCH (09:53)
[2017-12-20] MEDS: MULTIPLE VITAMIN TAB PO SCH (09:53)
[2017-12-20] MEDS: AZITHROMYCIN 250 MG TAB PO SCH (09:54)
[2017-12-20] MEDS: SOTALOL HCL 80 MG TAB PO SCH (09:55)
[2017-12-20] MEDS: HYDROXYUREA 500 MG CAP PO SCH (10:07)
[2017-12-20 13:00] VITALS: BP 127/73
[2017-12-20] MEDS ORDERED: DASA20TA PO ×2 (16:33→16:39)
[2017-12-20 17:00] VITALS: BP 125/70
[2017-12-20 17:41] LABS: Basophils # (auto) 0.7 uL; Basophils % (auto) 3.7 % (0.0-2.0); Eosinophils # (auto) 0.3 uL; Eosinophils % (auto) 1.6 % (0.0-7.0); Hematocrit 42.4 % (41.0-53.0); Hemoglobin 14.3 g/dL (13.5-17.5); Lymphocytes # (auto) 1.6 uL; Lymphocytes % (auto) 8.3 % (10.0-50.0); Mean Corpuscular Hemoglobin 30.9 pg (28.0-32.0); Mean Corpuscular Hgb Conc. 33.8 g/dL (32.0-36.0); Mean Corpuscular Volume 91.6 fL (80.0-100.0); Monocytes # (auto) 0.4 uL; Monocytes % (auto) 2.1 % (0.0-12.0); Neutrophils # (auto) 16.6 uL; Neutrophils % (auto) 84.3 % (37.0-80.0); Nucleated Red Blood Cells % 0.1 %; Platelet Count (auto) 161 10^3/uL (140-450); Red Blood Cells 4.63 10^6/uL (4.5-5.90); Red Cell Distribution Width 13.9 % (11.8-14.3); White Blood Cell 19.7 10^3/uL (4.4-10.8)
[2017-12-20 19:42] VITALS: BP 125/70
== END 2017-12-20 20:25 | disposition home or self-care (01) | DRG 308 ==
LOC: ER 08:50 → TELE 08:51 → TELE-WESTW 16:36
PROVIDERS: ADMIT Internal Medicine; ATTEND Internal Medicine Pulmonary Disease
DX: I48.92 Unspecified atrial flutter (principal); J18.9 Pneumonia, unspecified organism; C92.10 Chronic myeloid leukemia, BCR/ABL-positive, not having achieved remission; J45.901 Unspecified asthma with (acute) exacerbation; K86.1 Other chronic pancreatitis; F32.9 Major depressive disorder, single episode, unspecified; F41.9 Anxiety disorder, unspecified; I12.9 Hypertensive chronic kidney disease with stage 1 through stage 4 chronic kidney disease, or unspecified chronic kidney disease; J20.9 Acute bronchitis, unspecified; K57.30 Diverticulosis of large intestine without perforation or abscess without bleeding; N18.2 Chronic kidney disease, stage 2 (mild); Z82.49 Family history of ischemic heart disease and other diseases of the circulatory system; Z91.19 Patient's noncompliance with other medical treatment and regimen; Z83.3 Family history of diabetes mellitus
CPT/HCPCS: 36415; 71046; 80053; 81001; 83735; 83880; 84484; 84550; 85007; 85025; 85027; 85610; 85730; 87070; 87205; 93005; 93306; 94640; 96374; 96375; J0696

== ENCOUNTER → 2017-12-28 | Outpatient (CLI) | payer OTHER ==
[~2017-12-28] MED LIST changes: -ALPR1TAB2 PO; +DASA20TA PO
== END | disposition home or self-care (01) ==
LOC: LAB 09:14
PROVIDERS: ATTEND Nurse Practitioner
DX: Z02.83 Encounter for blood-alcohol and blood-drug test (principal)
CPT/HCPCS: 36415; 83036

== ENCOUNTER → 2018-01-16 | Outpatient (CLI) | payer MEDICARE ==
[2018-01-16 13:39] LABS: Hematocrit 38.5 % (41.0-53.0); Hemoglobin 12.7 g/dL (13.5-17.5); Mean Corpuscular Hemoglobin 30.4 pg (28.0-32.0); Platelet Count (auto) 361 10^3/uL (140-450); Red Blood Cells 4.18 10^6/uL (4.5-5.90); Red Cell Distribution Width 14.4 % (11.8-14.3); White Blood Cell 11.1 10^3/uL (4.4-10.8)
[2018-01-16 13:46] LABS: Blast Cells 0; Myelocytes % 0; Promyelocytes % 0; Reactive Lymphocytes 0
[2018-01-16 14:08] LABS: Band Neutrophils % (manual) 2; Basophils % (manual) 5 (0.0-2.0); Eosinophils % (manual) 3 (0-7); Lymphocytes % (manual) 14 (10.0-50.0); Metamyelocytes % 1; Monocytes % (manual) 5 (0-12)
[2018-01-16 14:29] LABS: Albumin 3.7 g/dL (3.4-5.0); BUN/Creatinine Ratio 16.1; Calcium 8.5 mg/dL (8.5-10.1); Potassium 4.1 mmol/L (3.5-5.1)
[2018-01-16 14:32] LABS: Bilirubin, Total 0.2 mg/dL (0.2-1.0); Total Protein 7.3 g/dL (6.4-8.2)
== END | disposition home or self-care (01) ==
LOC: LAB 11:49
PROVIDERS: ATTEND Internal Medicine
DX: Z12.5 Encounter for screening for malignant neoplasm of prostate (principal); C92.10 Chronic myeloid leukemia, BCR/ABL-positive, not having achieved remission; I10 Essential (primary) hypertension
CPT/HCPCS: 36415; 80053; 83615; 84153; 85007; 85027

== ENCOUNTER → 2018-01-16 | Outpatient (CLI) | payer OTHER | END | disposition home or self-care (01) | LOC: LAB 10:00 | PROVIDERS: ATTEND Physician Assistant | DX: C44.212 Basal cell carcinoma of skin of right ear and external auricular canal (principal) ==

== ENCOUNTER 2018-02-08 08:04 | Emergency (ER) | payer MEDICARE, OTHER ==
[~2018-02-08] VITALS: Ht 172.7 cm; Wt 72.6 kg
[2018-02-08] MEDS ORDERED: SODIUM CHLORIDE 0.9% 1,000 ML IV ONE (08:27)
[2018-02-08] MEDS ORDERED: ASPirin 81 mg TAB PO ONE (08:30)
[2018-02-08] MEDS ORDERED: ONDANSETRON HCL 4 MG/2 ML VIAL IV ONE (08:30)
[2018-02-08] MEDS ORDERED: MORPHINE SULFATE 4 MG/ML SYR/VIAL IV ONE (08:30)
[2018-02-08 08:43] LABS: Hematocrit 39.6 % (41.0-53.0); Mean Corpuscular Hemoglobin 29.6 pg (28.0-32.0); Mean Corpuscular Hgb Conc. 32.8 g/dL (32.0-36.0); Mean Corpuscular Volume 90.4 fL (80.0-100.0); Platelet Count (auto) 154 10^3/uL (140-450); Red Blood Cells 4.38 10^6/uL (4.5-5.90); Red Cell Distribution Width 15.1 % (11.8-14.3)
[2018-02-08 08:55] LABS: Alanine Aminotransferase 21 U/L (16-61); Albumin 3.7 g/dL (3.4-5.0); Anion Gap 9 (5-15); Blood Urea Nitrogen 28 mg/dL (7-18); Calcium 8.7 mg/dL (8.5-10.1); Carbon Dioxide 29 mmol/L (21-32); Chloride 98 mmol/L (98-107); Glucose 129 mg/dL (74-106); Potassium 3.2 mmol/L (3.5-5.1); Sodium 136 mmol/L (136-145)
[2018-02-08 08:56] LABS: White Blood Cell 190.1 10^3/uL (4.4-10.8)
[2018-02-08 08:57] LABS: Basophils % (manual) 0 (0.0-2.0); Blast Cells 0; Promyelocytes % 0
[2018-02-08 09:00] LABS: Alkaline Phosphatase 70 U/L (45-117); Amylase 44 U/L (25-115); Aspartate Aminotransferase 51 U/L (15-37); BUN/Creatinine Ratio 23.7; Bilirubin, Total 0.4 mg/dL (0.2-1.0); GFR African American 79 mL/min; GFR Non-African American 65 mL/min; Lipase 290 U/L (73-393); Total Protein 7.6 g/dL (6.4-8.2)
[2018-02-08 09:50] LABS: Band Neutrophils % (manual) 10; Eosinophils % (manual) 1 (0-7); Lymphocytes % (manual) 3 (10.0-50.0); Metamyelocytes % 3; Monocytes % (manual) 1 (0-12); Myelocytes % 6
[2018-02-08 09:51] LABS: Reactive Lymphocytes 9
[2018-02-08] MEDS ORDERED: POTASSIUM EFFERVESENT TAB 25 MEQ PO ONE (10:00)
[2018-02-08 12:46] VITALS: BP 117/57
== END 2018-02-08 12:51 | disposition home or self-care (01) ==
LOC: ER 08:04
DX: R07.89 Other chest pain (principal); J45.909 Unspecified asthma, uncomplicated; I48.91 Unspecified atrial fibrillation; I12.9 Hypertensive chronic kidney disease with stage 1 through stage 4 chronic kidney disease, or unspecified chronic kidney disease; N18.9 Chronic kidney disease, unspecified; Z85.6 Personal history of leukemia
CPT/HCPCS: 36415; 71045; 80053; 82150; 83690; 84484; 85007; 85027; 93005; 96361; 96374; 96375; 99284; J2270; J2405; J7030

== ENCOUNTER → 2018-03-05 | Outpatient (CLI) | payer OTHER | END | disposition home or self-care (01) | LOC: LAB 12:36 | PROVIDERS: ATTEND Nurse Practitioner | DX: Z12.11 Encounter for screening for malignant neoplasm of colon (principal) | CPT/HCPCS: 82270 ==